=== PATIENT | female | born 1940 | race Caucasian/White ===

== ENCOUNTER 2017-01-13 08:32 | Observation (INO) | payer MEDICARE ==
[~2017-01-13] VITALS: Ht 162.6 cm; Wt 49.9 kg
[2017-01-13 08:32] VITALS: BP_SYST 146
[~2017-01-13 08:32] MED LIST: BENA10TA2 PO; DIGO250T78 PO; LEVO75TA7 PO; LOSA50TA3 PO; POTA20TA83 PO; SERT50TA12 PO; WARF2.5T2 PO; WARF5TAB2 PO
--- NOTE | 2017-01-13 08:32 | NUR ---
BROUGHT BACK TO BED #8 AND TRIAGED. REPORT GIVEN TO CANDIS
--- NOTE | 2017-01-13 08:45 | NUR ---
Patient stated that she took her BP medications twice this morning on accident. Pt denies any chest pain, dizziness or SOB. Pt stated that she has some weakness but nothing abnormal. Pt is aox4 with appropriate speech. No other injuries/complaints per pt or noted
--- NOTE | 2017-01-13 08:54 | NUR ---
ER at bedside examining patient.
[2017-01-13 09:32] LABS: ANION GAP 4 (5-15); BASOPHILS % (AUTO) 0.4 % (0.0-2.0); CALCIUM 8.9 mg/dL (8.4-11.0); CHLORIDE 101 mmol/L (98-107); CREATININE 0.66 mg/dL (0.55-1.30); EOSINOPHILS # (AUTO) 0.1 K/uL (0.0-0.4); EOSINOPHILS % (AUTO) 2.1 % (0.0-4.0); GLUCOSE 95 mg/dL (70-99); HEMATOCRIT 36.1 % (36-48); HEMOGLOBIN 12.2 g/dL (12.0-16.0); LYMPHOCYTES # (AUTO) 1.6 K/uL (1.0-5.5); LYMPHOCYTES % (AUTO) 47.4 % (20.5-51.5); MEAN CORPUSCULAR HEMOGLOBIN 30 pg (27-31); MEAN CORPUSCULAR HGB CONC 34 % (32-36); MEAN CORPUSCULAR VOLUME 89 fL (79.0-98.0); MONOCYTES # (AUTO) 0.4 K/uL (0.0-1.0); MONOCYTES % (AUTO) 10.9 % (1.7-9.3); NEUTROPHILS # (AUTO) 1.3 K/uL (1.8-7.7); NEUTROPHILS % (AUTO) 39.2 % (40.0-70.0); PLATELET COUNT (AUTO) 218 K/uL (130-430); POTASSIUM 4.2 mmol/L (3.5-5.1); RED BLOOD CELL COUNT(AUTO) 4.05 MIL/uL (4.2-6.2); RED CELL DISTRIBUTION WIDTH 12.9 % (9.0-15.0); SODIUM SERUM 133 mmol/L (136-145); WHITE BLOOD COUNT (AUTO) 3.4 K/uL (4.8-10.8)
[2017-01-13 09:42] LABS: ALANINE AMINOTRANSFERASE 20 U/L (12-78); ALBUMIN 3.4 g/dL (3.4-4.8); ASPARTATE AMINOTRANSFERASE 18 U/L (10-37); TOTAL BILIRUBIN 0.5 mg/dL (0.0-1.0); TOTAL PROTEIN, SERUM 6.4 g/dL (6.4-8.3)
--- NOTE | 2017-01-13 09:48 | NUR ---
Pt's HR is [address] Mcdonald is aware pt took 2 digoxin this morning.
[2017-01-13 09:58] LABS: UREA NITROGEN, BLOOD 7 mg/dL (8-21)
[2017-01-13 10:02] LABS: DIGOXIN 5.7 ng/mL (0.80-2.00)
--- NOTE | 2017-01-13 10:29 | NUR ---
Called Poison Control at [phone] and spoke with Monica. Per recommendations: hydration, aspirin or tylenol, run drug screen, hold off on digoxin binder and repeat digoxin level at noon. Dr. Mcdonald notified. Will continue to monitor patient.
[2017-01-13] MEDS ORDERED: LEVO125T8 PO (10:35)
[2017-01-13] MEDS ORDERED: SERT25TA77 PO (10:35)
[2017-01-13] MEDS ORDERED: DIGO0.25 PO (10:35)
[2017-01-13] MEDS ORDERED: LOSA50TA20 PO (10:35)
[2017-01-13] MEDS ORDERED: POTA20TA83 PO (10:35)
--- NOTE | 2017-01-13 10:45 | NUR ---
Telemetry strip printed, interpreted as SINUS RHYTHM at 57 bpm, and placed on the chart.
--- NOTE | 2017-01-13 10:45 | NUR ---
Pt is resting comfortably with no complaints of pain, no noted distress or discomfort
--- NOTE | 2017-01-13 10:46 | NUR ---
Telemetry strip printed, interpreted as SINUS BRADYCARDIA at 57 bpm, and placed on the chart.
--- NOTE | 2017-01-13 11:19 | NUR ---
Patient will be admitted to care of Dr Gaston. Admitted to [facility] unit. Will go to room 111. Belongings list completed. Summary report printed. Report will be given at bedside.
--- NOTE | 2017-01-13 11:22 | NUR ---
ADMISSION NOTE Received patient from ER via navarleticia, received report from ED RN. Patient admitted with diagnosis of bradycardia. Patient oriented to hospital routine, call light, toileting and safety-patient verbalized understanding.
[2017-01-13 11:25] VITALS: BP_SYST 148
[2017-01-13 12:00] VITALS: BP_SYST 150
--- NOTE | 2017-01-13 12:20 | NUR ---
OPENING NOTE: PT AAOX4. NO NOTABLE SIGNS OF RESPIRATORY DISTRESS. SKIN WARM DRY AND COLOR NORMAL FOR ETHNICITY. DENIES DIZZINESS, LIGHTHEADED, VISUAL CHANGES, NAUSEA/VOMITING, AND TINGLING/NUMBNESS/CRAMPING. PT EDUCATED ON NEED TO CALL PRIOR TO AMBULATING AND ON SIGNS AND SYMPTOMS OF DIGOXIN TOXICITY. PT VERBALIZES UNDERSTANDING. BED AT LOWEST POSITION, CALL LIGHT IN REACH, BED ALARM ON, SIDE RAILS X3. ALL NEEDS MET AT THIS TIME. CONTINUE TO MONITOR.
--- NOTE | 2017-01-13 12:30 | NUR ---
IV INSERTION: IV started on LAC. Successful after 1 attempts. Will observe for any signs of infiltration.
--- NOTE | 2017-01-13 14:00 | NUR ---
Case Mgt: Admitted as observation-I explained CHEN to pt and that she was admitted as observation status by her admitting MD. Pt verbalized understanding and that she may have co-pays for Part B. Pt signed and was given copy of CHEN letter. MAGED BETHEA
--- NOTE | 2017-01-13 14:06 | NUR ---
SPOKE TO POISON CONTROL: SPOKE TO KEKE FROM POISON CONTROL ( ). NOVEMBER RECOMMENDED A REPEAT DIG LEVEL. PAGED . AWAITING PAGE BACK AT THIS TIME.
--- NOTE | 2017-01-13 14:31 | NUR ---
Social Service Note: Pt referred to social worker health services by physician and nursing due to pt caring for her and daughter. PRINT INSPECTOR met with pt at bedside. Pt states that she lives with her ; pt states that her is an alcoholic and falls often. Pt states that she helps her out at home as needed. Pt states that she does most of the driving at home but her was able to drive her to the hospital today. Pt states that he will be fine at home alone overnight. Pt states that her daughter lives in [place] and is legally blind. Pt states that she visits her daughter often but she will be alright with no visit today while pt is in the hospital. PRINT INSPECTOR spoke with pt about caregiving agencies that could assist; pt denied the need for caregiving agencies. PRINT INSPECTOR has completed the discharge plan assessment. Pt has no other needs/concerns at this time. PRINT INSPECTOR will remain available for support and will follow up as needed.
--- NOTE | 2017-01-13 14:52 | NUR ---
HR MONITOR: NOTED HR 48. PT IS AAOX4. NO NOTABLE SIGNS OF ACUTE RESPIRATORY DISTRESS, NO SOB. SKIN IS WARM DRY AND COLOR NORMAL FOR ETHNICITY. PT DENIES PAIN AT THIS TIME. PT DENIES FEELING DIZZINESS, LIGHTHEADED, N/V, VISUAL CHANGES. RE-ENFORCED EDUCATION TO CALL PRIOR TO GETTING UP FROM BED. YEAST CAKE CUTTERDHEERAJ IS AWARE. WILL CONTINUE TO MONITOR CLOSELY.
--- NOTE | 2017-01-13 15:49 | NUR ---
ROUNDING: PT RESTING IN BED WITH HOB ELEVATED, WATCHING TV. NO ACUTE SIGNS OF RESPIRATORY DISTRESS. SOB. IV INTACT. PT AMBULATORY TO BATHROOM WITH MINIMAL ASSIST. PT IS VOIDING WELL. PT IS DRINKING WATER. DENIES PAIN, DIZZINESS, LIGHTHEADED, VISUAL CHANGES, AND N/V. PROGRAM ASSOCIATE IN PLACE. BED AT LOWEST POSITION, CALL LIGHT ON LAP, AND RE-ENFORCED TO CALL PRIOR TO GETTING OUT OF BED. CONTINUE TO MONITOR.
[2017-01-13 16:30] VITALS: BP_SYST 126
--- NOTE | 2017-01-13 17:33 | NUR ---
ROUNDING: PT SITTING UP IN BED WATCHING TV. DAUGHTER WAS AT BEDSIDE EARLIER. PATIENT STATED DAUGHTER TOOK HER [facility] HOME FROM [employer]. PT RESIGNED BELONGING LIST. NO ACUTE SIGNS OF DISTRESS NOTED. IV INTACT, NO REDNESS/SWELLING. ALL NEEDS MET AT THIS TIME. CALL LIGHT IN REACH, BED AT LOWEST POSITION, RE-ENFORCED TEACHING TO CALL PRIOR TO GETTING UP. TELE MONITOR INTACT.
--- NOTE | 2017-01-13 18:29 | NUR ---
CLOSING NOTE: PT LAYING COMFORTABLY IN BED, WATCHING TV. NO NOTABLE SIGNS OF RESPIRATORY DISTRESS, NO SOB. PT ON ROOM AIR. SKIN WARM DRY AND COLOR NORMAL FOR ETHNICITY. DENIES LIGHTHEADED, DIZZINESS, N/V, VISUAL CHANGES. AND NO CHANGE IN LOC NOTED. PT AMBULATORY WITH MINIMAL ASSIST TO BATHROOM. PT STATED SHE IS VOIDING WELL. IV INTACT AND PATENT, NO SIGNS OF REDNESS/SWELLING. SAFETY PRECAUTIONS IN PLACE, BED AT LOWEST POSITION, CALL LIGHT IN REACH, AND RE-ENFORCED TEACHING TO CALL PRIOR TO GETTING UP. ALL NEEDS MET. WILL ENDORSE PLAN OF CARE TO [facility].
[2017-01-13 19:14] LABS: INR 2.8 (0.8-1.2)
--- NOTE | 2017-01-13 19:50 | NUR ---
PM SHIFT ASSESSMENT RECEIVED PATIENT LYING IN BED, AOX4, VITAL SIGNS STABLE. DENIES ANY PAIN OR DISCOMFORT AT THIS TIME. SINUS KOURTNEY ON TELE MONITOR. IV LINE LINDSEY LFA INTACT AND PATENT, POC DISCUSSED WITH PATIENT, VERBALIZED UNDERSTANDING, COMPLIANT. ORIENTED TO ROOM AND TO USE CALL LIGHT FOR NURSE ASSISTANCE, SAFETY MEASURES IN PLACE, WILL MONITOR.
[2017-01-13 19:53] LABS: PROTHROMBIN TIME 31.7 SECS (9.5-12.5)
--- NOTE | 2017-01-13 19:56 | NUR ---
MD GRANT CALLED [facility] AT [phone]NGUYEN WOLF CHIBAO FLEXOGRAPHIC PRESS OPERATOR.
[2017-01-13 20:00] VITALS: BP_SYST 136
--- NOTE | 2017-01-13 20:00 | NUR ---
POISON CONTROL SPOKE TO SHERRIE FROM POISON CONTROL, UPDATED HER ON PATIENT'S STATUS, STATES SHE WILL CALL TO FOLLOW UP WITH PATIENT IN THE AM.
--- NOTE | 2017-01-13 20:20 | NUR ---
CRITICAL LAB LAB CALLED FOR PT 31.7 AND INR OF 2.8, DR. ROBERTS CALLED BACK, NO NEW ORDERS GIVEN, UPDATED HIM THAT PHARMACY WILL START PATIENT ON COUMADIN TOMORROW AM AND NOT TONIGHT.
--- NOTE | 2017-01-13 20:37 | NUR ---
MD DR. CERDA MAKING ROUNDS THIS EVENING, UPDATED HER ON PATIENT'S STATUS, NO NEW ORDERS AT THIS TIME.
--- NOTE | 2017-01-13 22:26 | NUR ---
RN ROUNDS PATIENT RESTING QUIETLY IN BED, RESPIRATIONS EVEN AND UNLABORED, REMAINS SINUS KOURTNEY HR OF 53. SAFETY MEASURES IN PLACE, CALL LIGHT WITHIN REACH, WILL MONITOR.
[2017-01-13 23:52] VITALS: BP_SYST 121
--- NOTE | 2017-01-14 00:36 | NUR ---
RN ROUNDS PATIENT RESTING QUIETLY IN BED, RESPIRATIONS EVEN AND UNLABORED, VITALS SIGNS STABLE. SAFETY MEASURES IN PLACE, CALL LIGHT WITHIN REACH, WILL MONITOR.
--- NOTE | 2017-01-14 02:50 | NUR ---
RN ROUNDS PATIENT RESTING QUIETLY IN BED, RESPIRATIONS EVEN AND UNLABORED. SAFETY MEASURES IN PLACE, CALL LIGHT WITHIN REACH, WILL CONTINUE TO MONITOR.
[2017-01-14 03:48] VITALS: BP_SYST 143
--- NOTE | 2017-01-14 04:42 | NUR ---
RN ROUNDS PATIENT SLEEPING, RESPIRATIONS EVEN AND UNLABORED. VITALS SIGNS STABLE. SAFETY MEASURES IN PLACE, CALL LIGHT WITHIN REACH, WILL MONITOR.
--- NOTE | 2017-01-14 06:43 | NUR ---
CLOSING NOTE PATIENT AWAKE, DENIES ANY PAIN OR DISCOMFORT, AM MEDICATIONS ADMINISTERED. NEEDS ATTENDED TO, SAFETY MEASURES MAINTAINED THROUGH OUT SHIFT, CALL LIGHT WITHIN REACH, WILL CONTINUE TO MONITOR UNTIL REPORT GIVEN TO AM NURSE.
[2017-01-14] MEDS ORDERED: LEVOTHYROXINE SODIUM 0.125 MG TABLET PO SCH (07:00)
[2017-01-14 07:20] LABS: ANION GAP 3 (5-15); CALCIUM 8.8 mg/dL (8.4-11.0); CHLORIDE 102 mmol/L (98-107); CREATININE 0.56 mg/dL (0.55-1.30); GLUCOSE 93 mg/dL (70-99); PHOSPHORUS 3.7 mg/dL (2.7-4.5); POTASSIUM 4.2 mmol/L (3.5-5.1); SODIUM SERUM 134 mmol/L (136-145); THYROID STIMULATING HORMONE 0.71 uIu/mL (0.34-4.82); UREA NITROGEN, BLOOD 8 mg/dL (8-21)
--- NOTE | 2017-01-14 07:55 | NUR ---
OPENING NOTE: PT SITTING UP EATING BREAKFAST. AAOX4. NO NOTABLE SIGNS OF RESPIRATORY DISTRESS. SKIN WARM DRY AND COLOR PINK. DENIES DIZZINESS, LIGHTHEADED, VISUAL CHANGES, N/V. DENIES PAIN AT THIS TIME. IV PATENT AND INTACT, NO NOTED REDNESS/SWELLING. NO ACTIVE BLEEDING. ALL NEEDS MET. SAFETY PRECAUTION IN PLACE. CONTINUE TO MONITOR.
[2017-01-14 08:00] VITALS: BP_SYST 135
[2017-01-14] MEDS ORDERED: SERTRALINE HCL 50 MG TABLET PO SCH (09:00)
[2017-01-14] MEDS ORDERED: LOSARTAN POTASSIUM 50 MG TABLET (COZAAR) PO SCH (09:00)
--- NOTE | 2017-01-14 10:00 | NUR ---
ROUNDING: PT AAOX4. NO NOTABLE SIGNS OF RESPIRATORY DISTRESS, NO SOB. SKIN COLOR PINK. DENIES PAIN, SOB, DIZZINESS, LIGHTHEADED, VISUAL CHANGES, N/V. PT AMBULATES WITH MINIMAL ASSIST. IV INTACT, NO SIGNS OF BLEEDING. NO SIGNS OF REDNESS/SWELLING. ALL NEEDS MET. CONTINUE TO MONITOR.
[2017-01-14 10:23] LABS: INR 2.5 (0.8-1.2); PROTHROMBIN TIME 28.3 SECS (9.5-12.5)
[2017-01-14 10:40] VITALS: BP_SYST 128
[2017-01-14] MEDS ORDERED: WARFARIN SODIUM 2 MG TABLET PO SCH (18:00)
== END 2017-01-14 10:55 | disposition home or self-care (01) ==
LOC: SED 08:34 → STU 11:19
PROVIDERS: ADMIT Internal Medicine; ATTEND Internal Medicine
DX: T46.0X5A Adverse effect of cardiac-stimulant glycosides and drugs of similar action, initial encounter (principal); I48.0 Paroxysmal atrial fibrillation; I10 Essential (primary) hypertension; E03.9 Hypothyroidism, unspecified; K80.20 Calculus of gallbladder without cholecystitis without obstruction; K82.8 Other specified diseases of gallbladder; Z87.891 Personal history of nicotine dependence
CPT/HCPCS: 36415 ×2; 80048; 80053; 80162 ×2; 83735; 84100; 84443; 85025; 85610 ×2; 93005 ×2; 99291; G0378 ×2

== ENCOUNTER 2017-03-10 22:12 | Emergency (ER) | payer MEDICARE, OTHER ==
[~2017-03-10] VITALS: Ht 162.6 cm; Wt 45.4 kg
[2017-03-10 22:12] VITALS: BP_SYST 165
[~2017-03-10 22:12] MED LIST changes: -BENA10TA2 PO; +LEVO125T8 PO; -LEVO75TA7 PO; +LOSA50TA20 PO; +SERT25TA77 PO
--- NOTE | 2017-03-10 22:23 | NUR ---
Placed in room 01 . Placed on classroom monitor, blood pressure machine and pulse oximeter. To gown for exam. Side rails up. Report given to LA[facility] Arau[facility].
--- NOTE | 2017-03-10 22:33 | NUR ---
Patient in bed 1 to await evaluation by ER MD-Patient c/o nausea, vomiting and diarrhea since 1700 today. No other complaints at present. Patient to go to restroom to attempt to provide urine sample. Will continue to observe and assess.
--- NOTE | 2017-03-10 22:50 | NUR ---
Patient unable to provide urine sample at this time. Patient placed on monitor car operator due to hx of a-fib, at bedside-update/emotional support given, questions answered. Patient continues to wait for MD nava
[2017-03-10] MEDS ORDERED: WARF2TAB2 PO (22:51)
[2017-03-10] MEDS ORDERED: WARF2.5T2 PO (22:52)
--- NOTE | 2017-03-10 23:17 | NUR ---
ER at bedside examining patient.
[2017-03-10] MEDS ORDERED: NACL 0.9% 1,000 ML IV ONE (23:45)
[2017-03-10] MEDS ORDERED: ONDANSETRON HCL 4 MG/2 ML VIAL IVP ONE (23:45)
[2017-03-11 00:03] LABS: BASOPHILS % (AUTO) 0.3 % (0.0-2.0); EOSINOPHILS % (AUTO) 0.2 % (0.0-4.0); HEMATOCRIT 39.5 % (36-48); HEMOGLOBIN 13.2 g/dL (12.0-16.0); LYMPHOCYTES # (AUTO) 1.1 K/uL (1.0-5.5); LYMPHOCYTES % (AUTO) 17.3 % (20.5-51.5); MEAN CORPUSCULAR HEMOGLOBIN 30 pg (27-31); MEAN CORPUSCULAR HGB CONC 33 % (32-36); MEAN CORPUSCULAR VOLUME 90 fL (79.0-98.0); MONOCYTES # (AUTO) 0.3 K/uL (0.0-1.0); MONOCYTES % (AUTO) 4.8 % (1.7-9.3); NEUTROPHILS # (AUTO) 5.2 K/uL (1.8-7.7); NEUTROPHILS % (AUTO) 77.4 % (40.0-70.0); PLATELET COUNT (AUTO) 214 K/uL (130-430); RED BLOOD CELL COUNT(AUTO) 4.37 MIL/uL (4.2-6.2); RED CELL DISTRIBUTION WIDTH 13.1 % (9.0-15.0); WHITE BLOOD COUNT (AUTO) 6.6 K/uL (4.8-10.8)
[2017-03-11 00:06] LABS: ANION GAP 10 (5-15); CALCIUM 8.4 mg/dL (8.4-11.0); CHLORIDE 92 mmol/L (98-107); CREATININE 0.66 mg/dL (0.55-1.30); GLUCOSE 153 mg/dL (70-99); POTASSIUM 3.5 mmol/L (3.5-5.1); SODIUM SERUM 127 mmol/L (136-145); UREA NITROGEN, BLOOD 13 mg/dL (8-21)
[2017-03-11 00:13] LABS: ALANINE AMINOTRANSFERASE 20 U/L (12-78); ALBUMIN 3.8 g/dL (3.4-4.8); AMYLASE 57 U/L (0-100); ASPARTATE AMINOTRANSFERASE 16 U/L (10-37); LIPASE 157 U/L (73-393); TOTAL BILIRUBIN 0.3 mg/dL (0.0-1.0)
--- NOTE | 2017-03-11 00:25 | NUR ---
Patient to CT scan in stable condition.
[2017-03-11 00:33] LABS: INR 2.3 (0.8-1.2); PROTHROMBIN TIME 25.8 SECS (9.5-12.5)
--- NOTE | 2017-03-11 00:45 | NUR ---
Patient back from CT scan in stable condition, assisted to bathroom to provide urine sample. Will continue to observe and assess
--- NOTE | 2017-03-11 01:11 | NUR ---
Patient unable to provide urine sample, In and out catheterization done for urine sample. Approximately 300 ml of clear dianne urine returned. Patient tolerated procedure well. Patient remains on radiographer cardiac catheterization-sinus rhythm, IVF infusing without difficulty-no redness or swelling noted at site.
[2017-03-11 01:23] LABS: BILIRUBIN,URINE NEGATIVE (NEGATIVE); BLOOD, URINE 1+ (NEGATIVE); CLARITY/URINE CLEAR (CLEAR); COLOR,URINE YELLOW (YELLOW); GLUCOSE,URINE NEGATIVE (NEGATIVE); KETONES,URINE TRACE (NEGATIVE); LEUKOCYTE ESTERASE ,URINE NEGATIVE (NEGATIVE); NITRITE, URINE NEGATIVE (NEGATIVE); PH,URINE 7.5 (5.0-8.0); PROTEIN URINE NEGATIVE (NEGATIVE); UROBILINOGEN,URINE 0.2 (0.2-1.0)
[2017-03-11 01:30] LABS: BACTERIA,URINE RARE /HPF (None Seen); WBC,URINE 0-3 /HPF (0-3)
[2017-03-11 01:31] LABS: MUCUS,URINE None Seen /LPF (None Seen)
--- NOTE | 2017-03-11 01:32 | NUR ---
Dr Arzate at bedside speaking with patient and family regarding lab results and dispo.
[2017-03-11 01:47] VITALS: BP_SYST 136
--- NOTE | 2017-03-11 01:50 | NUR ---
Patient given written and verbal discharge instructions and verbalizes understanding. ER MD discussed with patient the results and treatment provided. Patient in stable condition. ID arm band removed. IV catheter removed intact and dressing applied, no active bleeding. Rx of Zofran given. Patient educated on pain management and to follow up with PMD. Pain Scale 0. Opportunity for questions provided and answered.
== END 2017-03-11 01:47 | disposition home or self-care (01) ==
LOC: SED 22:12
DX: K29.70 Gastritis, unspecified, without bleeding (principal); E87.1 Hypo-osmolality and hyponatremia; K80.20 Calculus of gallbladder without cholecystitis without obstruction; J45.909 Unspecified asthma, uncomplicated; I48.91 Unspecified atrial fibrillation; I10 Essential (primary) hypertension; Z88.2 Allergy status to sulfonamides; Z88.8 Allergy status to other drugs, medicaments and biological substances; Z88.5 Allergy status to narcotic agent; Z79.899 Other long term (current) drug therapy; Z87.891 Personal history of nicotine dependence
CPT/HCPCS: 36415; 74176; 80053; 81000; 82150; 83690; 85025; 85610; 85730; 96361; 96374; 99285; J2405; J7030

== ENCOUNTER 2018-03-29 09:01 | Emergency (ER) | payer MEDICARE, OTHER ==
[~2018-03-29] VITALS: Ht 162.6 cm; Wt 45.4 kg
[~2018-03-29 09:01] MED LIST changes: -LOSA50TA3 PO; -SERT50TA12 PO; +WARF2TAB2 PO; -WARF5TAB2 PO
[2018-03-29 09:13] VITALS: BP_SYST 136
[2018-03-29] MEDS ORDERED: NACL 0.9% 1,000 ML IV ONE (09:27)
[2018-03-29 09:48] LABS: BASOPHILS # (AUTO) 0.1 K/uL (0.0-0.2); BASOPHILS % (AUTO) 1.4 % (0.0-2.0); EOSINOPHILS # (AUTO) 0.1 K/uL (0.0-0.4); HEMATOCRIT 36.9 % (36-48); HEMOGLOBIN 12.9 g/dL (12.0-16.0); LYMPHOCYTES # (AUTO) 1.1 K/uL (1.0-5.5); LYMPHOCYTES % (AUTO) 28.4 % (20.5-51.5); MEAN CORPUSCULAR HEMOGLOBIN 32 pg (27-31); MEAN CORPUSCULAR HGB CONC 35 % (32-36); MEAN CORPUSCULAR VOLUME 92 fL (79.0-98.0); MONOCYTES # (AUTO) 0.5 K/uL (0.0-1.0); MONOCYTES % (AUTO) 11.4 % (1.7-9.3); NEUTROPHILS # (AUTO) 2.2 K/uL (1.8-7.7); NEUTROPHILS % (AUTO) 56.8 % (40.0-70.0); PLATELET COUNT (AUTO) 238 K/uL (130-430); RED BLOOD CELL COUNT(AUTO) 4.03 MIL/uL (4.2-6.2); RED CELL DISTRIBUTION WIDTH 13.5 % (9.0-15.0)
[2018-03-29 10:03] LABS: ANION GAP 7 (5-15); CALCIUM 8.8 mg/dL (8.4-11.0); CHLORIDE 98 mmol/L (98-107); CREATININE 0.78 mg/dL (0.55-1.30); GLUCOSE 73 mg/dL (70-99); POTASSIUM 3.6 mmol/L (3.5-5.1); SODIUM SERUM 132 mmol/L (136-145); UREA NITROGEN, BLOOD 12 mg/dL (8-21)
[2018-03-29 10:08] LABS: ALANINE AMINOTRANSFERASE 22 U/L (12-78); ALBUMIN 3.6 g/dL (3.4-4.8); ASPARTATE AMINOTRANSFERASE 16 U/L (10-37); LIPASE 127 U/L (73-393); TOTAL BILIRUBIN 0.4 mg/dL (0.0-1.0)
[2018-03-29 10:18] LABS: INR 2.5 (0.8-1.2); PROTHROMBIN TIME 25.8 SECS (9.5-12.5)
[2018-03-29 10:24] LABS: DIGOXIN 2.1 ng/mL (0.80-2.00); THYROID STIMULATING HORMONE 10.67 uIu/mL (0.34-4.82)
[2018-03-29 11:24] VITALS: BP_SYST 128
== END 2018-03-29 11:24 | disposition home or self-care (01) ==
LOC: SED 09:01
DX: T50.991A Poisoning by other drugs, medicaments and biological substances, accidental (unintentional), initial encounter (principal); K52.1 Toxic gastroenteritis and colitis; J45.909 Unspecified asthma, uncomplicated; I10 Essential (primary) hypertension; I48.91 Unspecified atrial fibrillation; Z79.01 Long term (current) use of anticoagulants; Z79.899 Other long term (current) drug therapy; Z88.2 Allergy status to sulfonamides; Z88.8 Allergy status to other drugs, medicaments and biological substances; Y92.89 Other specified places as the place of occurrence of the external cause
CPT/HCPCS: 36415; 80053; 80162; 83690; 84443; 85025; 85610; 99284; J7030

== ENCOUNTER 2020-12-24 09:19 | Emergency (ER) | payer OTHER ==
[~2020-12-24] VITALS: Ht 165.1 cm; Wt 49.4 kg
[~2020-12-24 09:19] MED LIST changes: +DIGO250T PO; -DIGO250T78 PO; -LOSA50TA20 PO; +LOSA50TA28 PO
[2020-12-24 09:20] VITALS: BP_SYST 115
[2020-12-24 10:47] LABS: ANION GAP 9 (5-15); CALCIUM 8.3 mg/dL (8.4-11.0); CHLORIDE 99 mmol/L (98-107); CREATININE 0.82 mg/dL (0.55-1.30); GLUCOSE 101 mg/dL (70-99); POTASSIUM 3.8 mmol/L (3.5-5.1); SODIUM SERUM 135 mmol/L (136-145); UREA NITROGEN, BLOOD 11 mg/dL (8-21)
[2020-12-24 10:50] LABS: INR 1.5 (0.8-1.2); PROTHROMBIN TIME 15.4 SECS (9.5-12.5)
[2020-12-24 10:53] LABS: ALANINE AMINOTRANSFERASE 21 U/L (12-78); ALBUMIN 3.3 g/dL (3.4-4.8); ASPARTATE AMINOTRANSFERASE 16 U/L (10-37); BASOPHILS % (AUTO) 0.3 % (0.0-2.0); EOSINOPHILS % (AUTO) 0.4 % (0.0-4.0); HEMATOCRIT 37.7 % (36-48); HEMOGLOBIN 12.7 g/dL (12.0-16.0); LYMPHOCYTES % (AUTO) 22.4 % (20.5-51.5); MEAN CORPUSCULAR HEMOGLOBIN 31 pg (27-31); MEAN CORPUSCULAR HGB CONC 34 % (32-36); MEAN CORPUSCULAR VOLUME 91 fL (79.0-98.0); MONOCYTES # (AUTO) 0.3 K/uL (0.0-1.0); MONOCYTES % (AUTO) 7.4 % (1.7-9.3); NEUTROPHILS % (AUTO) 69.5 % (40.0-70.0); PLATELET COUNT (AUTO) 194 K/uL (130-430); RED BLOOD CELL COUNT(AUTO) 4.14 MIL/uL (4.2-6.2); RED CELL DISTRIBUTION WIDTH 14.2 % (9.0-15.0); TOTAL BILIRUBIN 0.5 mg/dL (0.0-1.0); WHITE BLOOD COUNT (AUTO) 4.3 K/uL (4.8-10.8)
[2020-12-24 10:55] LABS: ALCOHOL, BLOOD < 3 mg/dL (<10)
[2020-12-24 13:28] VITALS: BP_SYST 126
== END 2020-12-24 13:29 | disposition home or self-care (01) ==
LOC: SED 09:19
DX: S20.212A Contusion of left front wall of thorax, initial encounter (principal); S30.1XXA Contusion of abdominal wall, initial encounter; S09.90XA Unspecified injury of head, initial encounter; I10 Essential (primary) hypertension; I48.91 Unspecified atrial fibrillation; J45.909 Unspecified asthma, uncomplicated; Z88.2 Allergy status to sulfonamides; Z88.5 Allergy status to narcotic agent; Z88.8 Allergy status to other drugs, medicaments and biological substances; Z79.899 Other long term (current) drug therapy; W01.10XA Fall on same level from slipping, tripping and stumbling with subsequent striking against unspecified object, initial encounter; Y93.89 Activity, other specified; Y92.89 Other specified places as the place of occurrence of the external cause; Y99.8 Other external cause status
CPT/HCPCS: 36415; 70450; 71045; 71260; 72125; 74177; 76376; 80053; 85025; 85610; 86886; 86900; 86901; 93005; 99285; G0482; Q9967